=== PATIENT | female | born 2000 | race African-American/Black ===

== ENCOUNTER 2018-05-08 05:36 | Inpatient (IN) | payer MEDICAID, OTHER ==
[2018-05-08] VITALS (8 sets, daily range): BP systolic 86–102; BP diastolic 48–68
[~2018-05-08] VITALS: Ht 162.6 cm; Wt 63.5 kg
[2018-05-08] MEDS ORDERED: DEXT 5%/LR + PITOCIN 20UNITS/L 1,000 ML IV ONE (05:54)
[2018-05-08] MEDS ORDERED: DEXT 5%/LR + PITOCIN 20UNITS/L 1,000 ML IV SCH ×2 (06:15→07:12)
[2018-05-08 06:41] LABS: BASOPHILS % 0.3 % (0.0-2.0); EOSINOPHILS % 0.4 % (0.0-5.0); HEMATOCRIT. 25.5 % (36.0-48.0); LYMPHOCYTES % 11.7 % (20.0-50.0); MEAN CORPUSCULAR HEMOGLOBIN 33.6 pg (28.0-32.0); MEAN CORPUSCULAR VOLUME 95.7 fL (81.0-99.0); MEAN PLATELET VOLUME 9.6 fl (7.4-10.4); MONOCYTES % 4.1 % (2.0-8.0); NEUTROPHILS % 83.5 % (40.0-76.0); PLATELET 258 x1000/uL (130-400); RED BLOOD CELL COUNT 2.66 mill/uL (4.2-5.4); RED CELL DISTRIBUTION WIDTH 13.2 % (11.6-14.6)
[2018-05-08] MEDS: LACTATED RINGERS 1,000 ML IV SCH ×2 (06:44→06:46)
[2018-05-08 06:50] LABS: INR 0.9; PROTHROMBIN TIME 9.4 sec (9.4-11.6)
[2018-05-08 07:03] LABS: CLARITY URINE TURBID (CLEAR); COLOR URINE YELLOW (YELLOW); KETONES URINE 1+ (NEGATIVE); LEUKOCYTE ESTERASE URINE 1+ (NEGATIVE); NITRITE URINE NEGATIVE (NEGATIVE); OCCULT BLOOD URINE 2+ (NEGATIVE); PH URINE 6.5 (4.5-8.0); PROTEIN URINE TRACE (NEGATIVE); SPECIFIC GRAVITY URINE 1.028 (1.005-1.030)
[2018-05-08 07:15] LABS: *BARBITURATES SCREEN URINE NEGATIVE (NEGATIVE); *BENZODIAZEPINES SCREEN URINE NEGATIVE (NEGATIVE); *COCAINE SCREEN URINE NEGATIVE (NEGATIVE)
[2018-05-08] MEDS ORDERED: RHO(D) IMMUNE GLOBULIN 300 MCG/SYR IM PRN (07:15)
[2018-05-08] MEDS ORDERED: ACETAMINOPHEN WITH CODEINE 300/30MG TABLET PO PRN ×2 (07:15)
[2018-05-08] MEDS ORDERED: HEMORRHOIDAL SUPP PR PRN (07:15)
[2018-05-08] MEDS ORDERED: GLYCERIN/WITCH HAZEL LEAF MEDICATED PAD TOP PRN (07:15)
[2018-05-08 07:16] LABS: CANNABINOID URINE SCREEN NEGATIVE (NEGATIVE); METHADONE URINE SCREEN NEGATIVE (NEGATIVE); OPIATES URINE SCREEN NEGATIVE (NEGATIVE); PHENCYCLIDINE URINE SCREEN NEGATIVE (NEGATIVE)
[2018-05-08 07:19] LABS: *AMPHETAMINES SCREEN URINE PRESUMTIVE POSITIVE (NEGATIVE)
[2018-05-08] MEDS ORDERED: LACTATED RINGERS 1,000 ML IV SCH (07:30)
[2018-05-08] MEDS: IBUPROFEN 400MG TABLET PO PRN (07:35)
[2018-05-08] MEDS: SIMETHICONE 80MG TABLET CHEW PO SCH ×4 (07:40→21:29)
[2018-05-08] MEDS ORDERED: ONDANSETRON HCL 4MG/2ML VIAL IV PRN (08:49)
[2018-05-08] MEDS ORDERED: BISACODYL 10MG SUPP PR PRN (09:00)
[2018-05-08] MEDS: PRENATAL VIT/FE FUMARATE/FA TABLET PO SCH (09:00)
[2018-05-08 10:33] LABS: HEPATITIS B SURFACE ANTIGEN NEGATIVE
[2018-05-08 10:41] LABS: RUBELLA IGG < 0.2 IU/mL (4.99-10)
[2018-05-08] MEDS: MAGNESIUM/ALUMINUM HYDROXIDE/SIMETHICONE 30ML UDC PO SCH ×3 (13:00→21:27)
[2018-05-08] MEDS: DOCUSATE SODIUM 100MG CAPSULE PO SCH (21:26)
[2018-05-09 06:00] VITALS: BP 99/69
[2018-05-09 07:31] VITALS: BP 95/50
[2018-05-09] MEDS: MAGNESIUM/ALUMINUM HYDROXIDE/SIMETHICONE 30ML UDC PO SCH ×4 (08:37→21:17)
[2018-05-09] MEDS: SIMETHICONE 80MG TABLET CHEW PO SCH ×4 (08:38→21:17)
[2018-05-09] MEDS: PRENATAL VIT/FE FUMARATE/FA TABLET PO SCH (08:39)
[2018-05-09 15:10] LABS: HIV 1 ABS Positive (Negative); HIV 2 ABS Negative (Negative); HIV SCREEN 4G Reactive (Non Reactive); INTERPRETATION HIV-1 Positive (.)
[2018-05-09 16:06] VITALS: BP 91/51
[2018-05-09] MEDS: IBUPROFEN 400MG TABLET PO PRN (18:11)
[2018-05-09 19:10] VITALS: BP 103/56
[2018-05-09] MEDS: DOCUSATE SODIUM 100MG CAPSULE PO SCH (21:17)
[2018-05-10] VITALS (9 sets, daily range): BP systolic 71–100; BP diastolic 37–57
[2018-05-10] MEDS ORDERED: GENTAMICIN 120MG PREMIX 100 ML IV NR (08:00)
[2018-05-10 08:27] LABS: CHLORIDE 105 mEq/L (98-107)
[2018-05-10 08:44] LABS: BASOPHILS % 0.2 % (0.0-2.0); LYMPHOCYTES % 8.1 % (20.0-50.0); MEAN CORPUSCULAR HEMOGLOBIN 30.2 pg (28.0-32.0); MEAN CORPUSCULAR VOLUME 90.1 fL (81.0-99.0); MEAN PLATELET VOLUME 8.2 fl (7.4-10.4); MONOCYTES % 7.2 % (2.0-8.0); NEUTROPHILS % 83.5 % (40.0-76.0); PLATELET 173 x1000/uL (130-400); RED BLOOD CELL COUNT 1.69 mill/uL (4.2-5.4); RED CELL DISTRIBUTION WIDTH 13.4 % (11.6-14.6)
[2018-05-10] MEDS: AMPICILLIN 2,000 MG in SODIUM CHLORIDE 0.9% 100 ML IV SCH ×3 (08:45→21:04)
[2018-05-10 08:51] LABS: HEMATOCRIT. 15.3 % (36.0-48.0); HEMOGLOBIN. 5.1 g/dL (12.0-16.0)
[2018-05-10] MEDS: SIMETHICONE 80MG TABLET CHEW PO SCH ×4 (09:21→21:04)
[2018-05-10] MEDS: PRENATAL VIT/FE FUMARATE/FA TABLET PO SCH (09:22)
[2018-05-10] MEDS: MAGNESIUM/ALUMINUM HYDROXIDE/SIMETHICONE 30ML UDC PO SCH ×4 (09:22→21:04)
[2018-05-10] MEDS: FERROUS SULFATE 325MG TABLET PO SCH ×2 (12:01→16:33)
[2018-05-10] MEDS ORDERED: IRON SUCROSE COMPLEX 100 MG/5 ML ML IV SCH (14:00)
[2018-05-10] MEDS: SODIUM CHLORIDE 0.9% 1,000 ML IV SCH ×2 (17:59→19:45)
[2018-05-10] MEDS: GENTAMICIN 100MG PREMIX 50 ML IV SCH (18:07)
[2018-05-10] MEDS: DOCUSATE SODIUM 100MG CAPSULE PO SCH (21:04)
[2018-05-11 00:01] VITALS: BP 85/51
[2018-05-11] MEDS: GENTAMICIN 100MG PREMIX 50 ML IV SCH ×3 (01:50→19:55)
[2018-05-11 04:15] VITALS: BP 99/57
[2018-05-11] MEDS: SODIUM CHLORIDE 0.9% 1,000 ML IV SCH ×2 (04:29→19:55)
[2018-05-11] MEDS: AMPICILLIN 2,000 MG in SODIUM CHLORIDE 0.9% 100 ML IV SCH ×4 (06:40→23:42)
[2018-05-11 08:00] VITALS: BP 89/49
[2018-05-11] MEDS: PRENATAL VIT/FE FUMARATE/FA TABLET PO SCH (08:43)
[2018-05-11] MEDS: IBUPROFEN 400MG TABLET PO PRN (08:44)
[2018-05-11] MEDS: FERROUS SULFATE 325MG TABLET PO SCH (08:44)
[2018-05-11] MEDS: MAGNESIUM/ALUMINUM HYDROXIDE/SIMETHICONE 30ML UDC PO SCH ×5 (09:00→21:36)
[2018-05-11] MEDS: SIMETHICONE 80MG TABLET CHEW PO SCH ×5 (09:00→21:36)
[2018-05-11] MEDS ORDERED: IRON SUCROSE COMPLEX 100 MG in SODIUM CHLORIDE 0.9% 100 ML IV SCH (14:00)
[2018-05-11] MEDS: IRON SUCROSE COMPLEX 100 MG in SODIUM CHLORIDE 0.9% 100 ML IV SCH (16:17)
[2018-05-11 16:51] VITALS: BP 95/58
[2018-05-11] MEDS: DOCUSATE SODIUM 100MG CAPSULE PO SCH (21:00)
[2018-05-11 22:00] VITALS: BP 103/63
[2018-05-12] MEDS: GENTAMICIN 100MG PREMIX 50 ML IV SCH ×3 (03:43→20:27)
[2018-05-12] MEDS: AMPICILLIN 2,000 MG in SODIUM CHLORIDE 0.9% 100 ML IV SCH ×3 (05:41→19:11)
[2018-05-12 06:00] VITALS: BP 97/54
[2018-05-12 07:55] VITALS: BP 100/54
[2018-05-12] MEDS: FERROUS SULFATE 325MG TABLET PO SCH (09:00)
[2018-05-12] MEDS: MAGNESIUM/ALUMINUM HYDROXIDE/SIMETHICONE 30ML UDC PO SCH ×4 (09:07→21:06)
[2018-05-12] MEDS: SIMETHICONE 80MG TABLET CHEW PO SCH ×4 (09:07→21:07)
[2018-05-12] MEDS: PRENATAL VIT/FE FUMARATE/FA TABLET PO SCH (09:12)
[2018-05-12 15:55] VITALS: BP 100/56
[2018-05-12] MEDS: IRON SUCROSE COMPLEX 100 MG in SODIUM CHLORIDE 0.9% 100 ML IV SCH (16:19)
[2018-05-12 19:14] LABS: AMPHETAMINE CONF URINE Positive (.)
[2018-05-12 20:00] VITALS: BP 90/52
[2018-05-12] MEDS: DOCUSATE SODIUM 100MG CAPSULE PO SCH (21:05)
[2018-05-13 00:30] VITALS: BP 99/58
[2018-05-13 06:30] VITALS: BP 100/62
[2018-05-13 07:36] VITALS: BP 110/70
[2018-05-13] MEDS: MAGNESIUM/ALUMINUM HYDROXIDE/SIMETHICONE 30ML UDC PO SCH ×2 (08:31→12:21)
[2018-05-13] MEDS: SIMETHICONE 80MG TABLET CHEW PO SCH ×2 (08:32→12:22)
[2018-05-13] MEDS: FERROUS SULFATE 325MG TABLET PO SCH ×2 (08:33→12:22)
[2018-05-13] MEDS: PRENATAL VIT/FE FUMARATE/FA TABLET PO SCH (08:33)
== END 2018-05-13 16:20 | disposition home or self-care (01) | DRG 560 ==
LOC: L&D 05:36 → OBSVTOIN 05:36 → 7EST PP/OB 09:03
PROVIDERS: ADMIT Obstetrics & Gynecology; ATTEND Obstetrics & Gynecology
PROC: 10E0XZZ Delivery of Products of Conception, External Approach (ICD-10-PCS; principal; 2018-05-08 04:30)
DX: O99.324 Drug use complicating childbirth (principal); F15.10 Other stimulant abuse, uncomplicated; O99.03 Anemia complicating the puerperium; O9A.32 Physical abuse complicating childbirth; D64.9 Anemia, unspecified; Z37.0 Single live birth; Z3A.35 35 weeks gestation of pregnancy
CPT/HCPCS: 36415; 80048; 80170; 80305; 80307; 81003; 82728; 85025; 85610; 85730; 86592; 86703; 86762; 86850; 86900; 87040; 87070; 87077; 87086; 87186; 87340; J0290; J1580; J2405; J2590; J7030; J7050; J7120